=== PATIENT | male | born 1990 | race Asian ===

== ENCOUNTER 2021-11-12 09:37 | Emergency (ER) | payer MEDICAID ==
[~2021-11-12] VITALS: Ht 172.7 cm; Wt 79.5 kg
[2021-11-12 10:25] VITALS: BP 134/97
[2021-11-12] MEDS ORDERED: NAPR-1088 PO (12:18)
[2021-11-12] MEDS ORDERED: TETanus/Pertussis (Acell)/Diphther VAC/PF (Tdap-Adult) 0.5ml syringe IMVAC ONE (12:20)
== END 2021-11-12 12:31 | disposition home or self-care (01) ==
LOC: ER 09:37
DX: S80.12XA Contusion of left lower leg, initial encounter (principal); Z79.2 Long term (current) use of antibiotics; S80.11XA Contusion of right lower leg, initial encounter; W18.39XA Other fall on same level, initial encounter; Y93.89 Activity, other specified; Y92.89 Other specified places as the place of occurrence of the external cause; Y99.8 Other external cause status
CPT/HCPCS: 90471; 90715; 99284